=== PATIENT | female | born 1945 | race Caucasian/White ===

== ENCOUNTER → 2018-02-05 | Outpatient (CLI) | payer OTHER ==
[~2018-02-05] MED LIST: ALLERGY10 M1 PO; AMBIEN10 MG PO; AUGMENTIN500 MG PO; CEFTIN500 MG PO; MULTIVITAMIN1 EAC2 PO; PHENERGAN W/ COD1 ML PO; PRAVACHOL40 MG PO; PROTONIX40 MG PO; QUESTRAN4 GM/PACKE PO; Tessalon Perle PO; ZOLOFT100 MG PO; [UNRECOGNIZED DRUG - CODE] IH
== END | disposition home or self-care (01) ==
LOC: RAD 10:00
DX: M25.561 Pain in right knee (principal); M79.89 Other specified soft tissue disorders; M17.11 Unilateral primary osteoarthritis, right knee; M25.461 Effusion, right knee
CPT/HCPCS: 93971

== ENCOUNTER 2018-06-17 22:07 | Inpatient (IN) | payer OTHER ==
[~2018-06-17] VITALS: Ht 160 cm; Wt 74.1 kg
[~2018-06-17 22:07] MED LIST changes: +ASPIRIN81 M2 PO; +ATIVAN0.5 MG PO; +CALCIUM 500 MG1 EAC2 PO; +CRESTOR40 MG PO; +CYMBALTA60 MG PO; +IRON325 M1 PO; +METOPROLOL TART25 MG PO; +PLAVIX75 MG PO; +ZETIA10 MG PO
[2018-06-18 12:57] VITALS: BP 133/60
[2018-06-18 19:45] VITALS: BP 113/67
[2018-06-18 23:27] VITALS: BP 101/52
[2018-06-19 04:57] VITALS: BP 101/58
[2018-06-19 06:47] LABS: HEMATOCRIT 34.5 % (36.0-46.0); HEMOGLOBIN 11.2 G/DL (11.9-15.5); MCV 90.1 FL (83-99)
[2018-06-19 07:07] LABS: CHLORIDE 104 MEQ/L (99-109); CREATININE 0.8 MG/DL (0.6-1.3); GFR ESTIMATE (CALCULATED) > 59 mL/min/; GLUCOSE 108 mg/dL (70-99); POTASSIUM 4.1 MEQ/L (3.7-5.4); SODIUM 141 MEQ/L (136-147); UREA NITROGEN (BUN) 16 mg/dL (9-23)
[2018-06-19 07:22] VITALS: BP 102/52
[2018-06-19 09:50] VITALS: BP 121/58
[2018-06-19 16:18] VITALS: BP 139/63
[2018-06-19 20:05] VITALS: BP 132/74
[2018-06-20 02:00] VITALS: BP 159/79
[2018-06-20 06:22] LABS: HEMOGLOBIN 10.6 G/DL (11.9-15.5); MCV 87.9 FL (83-99)
[2018-06-20 07:38] VITALS: BP 140/64
[2018-06-20 10:46] LABS: ALBUMIN 3.6 G/DL (3.2-4.8); CHLORIDE 103 MEQ/L (99-109); POTASSIUM 4.5 MEQ/L (3.7-5.4); SODIUM 139 MEQ/L (136-147); TOTAL BILIRUBIN 1.1 MG/DL (0.0-1.0)
[2018-06-20 10:52] LABS: ALKALINE PHOSPHATASE 70 IU/L (3-129); ALT (GPT) 13 IU/L (3-49); AST (GOT) 18 IU/L (2-34); CREATININE 0.8 MG/DL (0.6-1.3); GFR ESTIMATE (CALCULATED) > 59 mL/min/; GLUCOSE 136 mg/dL (70-99); TOTAL PROTEIN 5.3 G/DL (6.4-8.3); UREA NITROGEN (BUN) 11 mg/dL (9-23)
[2018-06-20 12:45] LABS: APPEARANCE CLEAR ((CLEAR)); BILIRUBIN NEGATIVE; BLOOD NEGATIVE; COLOR YELLOW ((YELLOW)); GLUCOSE (STRIP) 150; KETONES 5; LEUKOCYTES NEGATIVE; NITRITE NEGATIVE; PROTEIN (STRIP) NEGATIVE; SPECIFIC GRAVITY 1.014 (1.000-1.030); UROBILINOGEN 0.2 MG/DL (0.2-1.0)
[2018-06-20 16:31] VITALS: BP 153/65
[2018-06-21 00:10] VITALS: BP 140/63
[2018-06-21 07:10] VITALS: BP 166/74
[2018-06-21] MEDS ORDERED: BISAC-EVAC10 MG PR (08:54)
[2018-06-21] MEDS ORDERED: SENNA PLUS TAB1 EACH PO (08:54)
[2018-06-21] MEDS ORDERED: ELIQUIS2.5 MG PO (08:55)
[2018-06-21] MEDS ORDERED: CELECOXIB200 MG PO (08:55)
[2018-06-21] MEDS ORDERED: OXYCODONE HCL5 MG PO (08:55)
[2018-06-21] MEDS ORDERED: TYLENOL REGULA325 MG PO (14:48)
[2018-06-21] MEDS ORDERED: LIPITOR80 MG PO (14:49)
[2018-06-21] MEDS ORDERED: TUMS500 MG PO (14:51)
[2018-06-21] MEDS ORDERED: NON-ASPIRIN EX500 M2 PO (14:53)
[2018-06-21] MEDS ORDERED: ROXICODONE5 MG PO (14:54)
[2018-06-21] MEDS ORDERED: OXYCODONE HCL10 MG PO (14:55)
[2018-06-21] MEDS ORDERED: MILK OF MAGN PO (14:56)
[2018-06-21] MEDS ORDERED: ZOFRAN4 MG PO (14:56)
[2018-06-21] MEDS ORDERED: LIDOCAINE PAIN1 EACH TP (14:59)
[2018-06-21] MEDS ORDERED: DULCOLAX10 MG PR (15:01)
[2018-06-21] MEDS ORDERED: BENADRYL25 MG PO (15:01)
[2018-06-21] MEDS ORDERED: DULCOLAX5 MG PO (15:04)
== END 2018-06-21 14:08 | DRG 470 ==
LOC: ENRESERV 22:07 → 2SOUTH 06-18 09:01 → 3EAST 06-18 11:49 → ENRESERV 06-18 17:20 → 3EAST 06-18 19:37
PROVIDERS: Orthopaedic Surgery; Physician Assistant
PROC: 0SRC0J9 Replacement of Right Knee Joint with Synthetic Substitute, Cemented, Open Approach (ICD-10-PCS; principal; 2018-06-18)
DX: M17.11 Unilateral primary osteoarthritis, right knee (principal); R09.02 Hypoxemia; R26.9 Unspecified abnormalities of gait and mobility; R41.0 Disorientation, unspecified; R32 Unspecified urinary incontinence; R33.9 Retention of urine, unspecified; G47.30 Sleep apnea, unspecified; I10 Essential (primary) hypertension; I25.10 Atherosclerotic heart disease of native coronary artery without angina pectoris; I44.7 Left bundle-branch block, unspecified; E78.00 Pure hypercholesterolemia, unspecified; K21.9 Gastro-esophageal reflux disease without esophagitis; F41.9 Anxiety disorder, unspecified; F32.9 Major depressive disorder, single episode, unspecified; K59.00 Constipation, unspecified; Z87.891 Personal history of nicotine dependence; Z95.5 Presence of coronary angioplasty implant and graft; Z79.02 Long term (current) use of antithrombotics/antiplatelets; Z79.82 Long term (current) use of aspirin
CPT/HCPCS: 71046; 74019; 80048; 80053; 81003; 85014; 85018; 93971; 94799; 97530 GO; 97530 GP; C1713; J0131; J0690; J1170; J1885; J2250; J2405; J2795; J3010; J7050; J7120; Q0175